=== PATIENT | male | born 1930 | race Hispanic/Latino ===

== ENCOUNTER 2018-02-28 10:56 | Observation (INO) | payer MEDICARE, OTHER ==
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
--- NOTE | 2018-02-28 11:49 | RAD ---
Date of service: 02/28/2018 HISTORY: r/o infiltrate COMPARISON: 07/10/2016. FINDINGS: LUNGS: The lungs are well inflated and clear. PLEURA: No significant pleural effusion identified, no pneumothorax apparent. CARDIOVASCULAR: Normal. OSSEOUS STRUCTURES: No significant abnormalities. VISUALIZED UPPER ABDOMEN: Normal. OTHER FINDINGS: None. IMPRESSION: No active pulmonary disease.
[2018-02-28 11:54] LABS: BASO # 0.02 K/mm3 (0.0-2.0); BASO % 0.2 % (0.0-3.0); EOS # 0.1 (0.0-0.7); EOS % 1.4 % (1.5-5.0); GRAN # 7.38 (1.4-6.5); GRAN % 74.8 % (50.0-68.0); HEMOGLOBIN 12.4 g/dL (14.0-18.0); LYMPH # 1.6 (1.2-3.4); LYMPH % 16.3 % (22.0-35.0); MEAN CELL VOLUME 86.6 fl (80.0-105.0); MEAN CORPUSCULAR HEMOGLOBIN 29.6 pg (25.0-35.0); MEAN CORPUSCULAR HGB CONC 34.2 g/dl (31.0-37.0); MEAN PLATELET VOLUME 9.5 fl (7.0-11.0); MONO # 0.7 (0.1-0.6); MONO % 7.3 % (1.0-6.0); RBC 4.19 10^6/uL (3.5-6.1); RED CELL DISTRIBUTION WIDTH 12.7 % (11.5-14.5); WHITE BLOOD COUNT 9.9 10^3/ul (4.5-11.0)
[2018-02-28 12:03] LABS: ALB/GLOB RATIO 1.4 (1.1-1.8); ALBUMIN 4.1 g/dL (3.0-4.8); ALT/SGPT 21 U/L (7-56); AST/SGOT 21 U/L (17-59); BLOOD UREA NITROGEN 19 mg/dL (7-21); CALCIUM 9.3 mg/dL (8.4-10.5); GFR AFRICAN-AMERICAN > 60; GFR NON-AFRICAN AMERICAN 57
[2018-02-28 12:14] LABS: TROPONIN I < 0.01 ng/mL
[2018-02-28 12:34] LABS: T3 1.03 ng/mL (0.97-1.69)
[2018-02-28] MEDS: Sodium Chloride 0.9% 1,000 ML IV SCH (12:39)
--- NOTE | 2018-02-28 12:39 | CT ---
Date of service: 02/28/2018 PROCEDURE: CT HEAD WITHOUT CONTRAST. HISTORY: s/p fall - r/o ICH COMPARISON: None available. TECHNIQUE: Axial computed tomography images were obtained through the head/brain without intravenous contrast. Radiation dose: Total exam DLP = 895 mGy-cm. This CT exam was performed using one or more of the following dose reduction techniques: Automated exposure control, adjustment of the mA and/or kV according to patient size, and/or use of iterative reconstruction technique. FINDINGS: HEMORRHAGE: No intracranial hemorrhage. BRAIN: No mass effect or edema. Severe chronic microvascular changes are seen in the periventricular white matter. No acute intracranial findings. There is a mild degree of atrophy VENTRICLES: Unremarkable. No hydrocephalus. CALVARIUM: Unremarkable. PARANASAL SINUSES: Unremarkable as visualized. No significant inflammatory changes. MASTOID AIR CELLS: Unremarkable as visualized. No inflammatory changes. OTHER FINDINGS: None. IMPRESSION: No acute intracranial findings
[2018-02-28 12:53] LABS: URINE BILIRUBIN NEGATIVE (NEGATIVE); URINE BLOOD NEGATIVE (NEGATIVE); URINE GLUCOSE (UA) >=1000 mg/dL (NEGATIVE); URINE LEUKOCYTE ESTERASE NEGATIVE Leu/uL (NEGATIVE); URINE PROTEIN TRACE mg/dL (<30 mg/dL); URINE UROBILINOGEN 0.2 E.U./dL (<1 E.U./dL)
[2018-02-28 12:55] LABS: URINE APPEARANCE CLEAR (CLEAR); URINE COLOR YELLOW (YELLOW)
[2018-02-28 13:03] LABS: URINE RBC 0 - 2 /hpf (0-2); URINE WBC 0 - 2 /hpf (0-6)
[2018-02-28 13:04] LABS: URINE BACTERIA FEW (NEG)
[2018-02-28 15:53] VITALS: BMI 25.5
[2018-02-28 16:46] VITALS: O2SAT 100
--- NOTE | 2018-02-28 21:00 | CARD ---
APPROVED REPORT Date of service: 02/28/2018 EKG Measurement Heart [id number] <Conclusion> Sinus rhythm with frequent PVCs Left axis deviation RSR' or QR pattern in V1 suggests right ventricular conduction delay Abnormal ECG
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
--- NOTE | 2018-03-01 01:34 | CON ---
Copied To: Jose Daniel Mott MD Attending MD: Jose Daniel Mott MD DATE: 02/28/2018 HISTORY OF PRESENT ILLNESS: This is an 87-year-old male with past medical history of diabetes, hyperlipidemia, came to the emergency room with episode of dizziness this morning. He states that he was making his bed, suddenly fell backward and hit the top of his head to the dresser and did not lose consciousness. and daughter are with the patient and CAT scan of the head was done, which was reported negative. Patient is going for ultrasound and workup in progress. PAST MEDICAL HISTORY: Diabetes, hypertension and dizziness. ALLERGIES: NO KNOWN DRUG ALLERGY. HOME MEDICATIONS: Zestril, glyburide and metformin. REVIEW OF SYSTEMS: Ten point review of systems was negative. PHYSICAL EXAMINATION: VITAL SIGNS: Blood pressure 166/86. HEENT: Normocephalic except bruise on the top of the head. NECK: Supple. NEUROLOGIC: Alert, awake and oriented x3. No aphasia. Cranial nerves II through XII were tested. Pupils reactive. EOM intact. Visual saucedo full. No facial asymmetry. Tongue midline. Motor: Moves all the extremities equally. Tone normal. Deep tendon reflexes are 1+. Both plantars are downgoing. Sensory appears intact. Cerebellar, gait, able to ambulate but reluctant. LABORATORY DATA: WBC 9.9, hemoglobin 12.4, hematocrit of 36.3, platelet 231. Sodium 133, potassium 5.1,chloride 96, CO2 of 26, glucose 257, BUN 19, creatinine 1.2. PLAN: Continue the present management. We will follow up. Jose Daniel Mott MD
[2018-03-01 06:29] LABS: ALB/GLOB RATIO 1.3 (1.1-1.8); ALBUMIN 4.6 g/dL (3.0-4.8); ALT/SGPT 22 U/L (7-56); AST/SGOT 25 U/L (17-59); BLOOD UREA NITROGEN 21 mg/dL (7-21); CALCIUM 9.4 mg/dL (8.4-10.5); GFR AFRICAN-AMERICAN > 60; GFR NON-AFRICAN AMERICAN 57; HDL CHOLESTEROL 37 mg/dL (29-60)
[2018-03-01 06:39] LABS: TROPONIN I < 0.01 ng/mL
[2018-03-01 06:40] LABS: LDL CHOLESTEROL 112 mg/dL (0-129)
[2018-03-01 07:34] VITALS: RESP 20
[2018-03-01] MEDS: Sodium Chloride 0.9% 1,000 ML IV SCH (11:03)
[2018-03-01 15:54] VITALS: BP 140/80; PULSE 82; TEMP 97.7
--- NOTE | 2018-03-01 16:42 | US ---
PROCEDURE: Bilateral carotid artery duplex ultrasound HISTORY: Carotid stenosis PHYSICIAN(S): Keith Dixon MD. TECHNIQUE: Duplex sonography and color-flow Doppler were used to evaluate the carotid bifurcations and limited segments of the vertebral arteries bilaterally. The exam is somewhat limited by tortuous vessels. FINDINGS: There is mild smooth heterogeneous plaque noted at the carotid bifurcations bilaterally. The peak systolic velocity in the proximal right internal carotid artery is 69 cm/sec. This corresponds to a 20 to 39% proximal right ICA stenosis. Normal systolic velocities are noted in the proximal right external carotid artery. There is antegrade flow in the right vertebral artery. The peak systolic velocity in the proximal left internal carotid artery is 85 cm/sec. This corresponds to a 20 to 39% proximal left ICA stenosis. Normal systolic velocities are noted in the proximal left external carotid artery. There is antegrade flow in the left vertebral artery. IMPRESSION: 1. 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 2. Antegrade flow in both vertebral arteries.
--- NOTE | 2018-03-01 17:41 | CARD ---
APPROVED REPORT Date of service: 03/01/2018 EXAM: Two-dimensional and M-mode echocardiogram with Doppler and color Doppler. INDICATION Syncope 2D DIMENSIONS Left Atrium (2D)3.9 (1.6-4.0cm)IVSd1.2 (0.7-1.1cm) LVDd4.7 (3.9-5.9cm)PWd1.2 (0.7-1.1cm) LVDs3.8 (2.5-4.0cm)FS (%) 19.2 % LVEF (%)39.4 (>50%) M-Mode DIMENSIONS Aortic Root3.00 (2.2-3.7cm)Aortic Cusp Exc.1.50 (1.5-2.0cm) Aortic Valve AoV Peak Gocozlag584.0cm/Chanelle Peak GR.7mmHg Mitral Valve E/A ratio0.0 TDI E/Lateral E'0.0E/Medial E'0.0 Tricuspid Valve TR Peak [id number]/sRAP [id number] Peak Gr.6mmHg [id number] LEFT VENTRICLE The left ventricle is normal size. There is mild concentric left ventricular hypertrophy. The systolic function is mildly to moderately impaired.EF-40-45% There is mild to moderate hypokinesis in the apical anterior wall. Transmitral Doppler flow pattern is Grade III-reversible restrictive diastolic dysfunction. No left ventricle thrombus noted on this study. There is no ventricular septal defect visualized. There is no left ventricular aneurysm. There is no mass noted in the left ventricle. RIGHT VENTRICLE The right ventricle is normal size. There is normal right ventricular wall thickness. The right ventricular systolic function is normal. ATRIA The left atrium size is normal. The right atrium size is normal. The interatrial septum is intact with no evidence for an atrial septal defect. AORTIC VALVE The aortic valve is calcified and displays decreased opening. The aortic valve is moderately sclerotic. There is trace aortic regurgitation. Mils Vs aortic sclerosis There is no aortic valvular vegetation. MITRAL VALVE The mitral valve is thickened but opens well. Mitral regurgitation is trace. There is no mitral valve stenosis. There is no evidence of mitral valve prolapse. TRICUSPID VALVE The tricuspid valve leaflets are thickened , but open well. There is trace tricuspid regurgitation.RVSP-16 mmof hg. There is no tricuspid valve stenosis. There is no tricuspid valve prolapse or vegetation. PULMONIC VALVE The pulmonary valve is normal in structure. There is no pulmonic valvular regurgitation. There is no pulmonic valvular stenosis. GREAT VESSELS The aortic root is normal in size. The ascending aorta is normal in size. The pulmonary artery is normal. The IVC is normal in size and collapses >50% with inspiration. PERICARDIAL EFFUSION There is no pleural effusion. There is no pericardial effusion. <Conclusion> The left ventricle is normal size. There is mild concentric left ventricular hypertrophy. The systolic function is mildly to moderately impaired.EF-40-45% There is trace aortic regurgitation. Mils Vs aortic sclerosis Mitral regurgitation is trace. There is trace tricuspid regurgitation.RVSP-16 mmof hg. The IVC is normal in size and collapses >50% with inspiration. There is no pericardial effusion.
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
--- NOTE | 2018-03-02 07:21 | DS ---
Copied To: Jose Antonio Haro MD Attending MD: Jose Antonio Haro MD HOSPITAL COURSE: The patient is 87-year-old, seen and examined, walking around with his daughter. He states he does not feel weak or dizzy anymore. He is almost back to the baseline. He states yesterday after he made bed, when he bent down and got up, he felt extremely dizzy and fell. Denies any back pain or knee pain. He states that he usually feels dizzy, but yesterday was extraordinary. Feels okay now. PHYSICAL EXAMINATION: VITAL SIGNS: He is afebrile, pulse 78, respirations 20, blood pressure 175/93. LUNGS: Bilateral good airflow. No rhonchi or crackle. HEART: S1 and S2 audible. ABDOMEN: Soft, nontender. No rebound, no guarding. NEUROLOGIC: He is awake, alert, oriented, communicative, ambulatory. EXTREMITIES: Bilateral legs, no edema. LABORATORY DATA: Sodium 142, potassium 4.4, chloride 101, CO2 26, BUN 21, creatinine 1.2, blood sugar of 159. ASSESSMENT: 1. Status post near syncope. 2. Uncontrolled hypertension. 3. Xcf-aabokzm-rjfozvgsk diabetes. 4. Hyperlipidemia. 5. Degenerative disk disease. PLAN: Start him on amlodipine 10 mg daily. Discontinue his IV fluids. Continue on lisinopril. We will monitor his blood pressure. I spoke to his daughter who need to have close monitoring of his blood pressure and might need to readjust his medication. Currently, he is only on lisinopril at home and he takes his diabetes medication, that is, Janumet. So, once his blood pressure is stable and cleared from Neuro and Cardiology point of view, he will be discharged. Jose Antonio Haro MD
== END 2018-03-01 16:52 | disposition home or self-care (01) ==
LOC: ED 10:56 → ERH 13:23 → 3RNO 14:16
PROVIDERS: ADMIT Internal Medicine; ATTEND Internal Medicine
DX: R55 Syncope and collapse (principal); R42 Dizziness and giddiness; I10 Essential (primary) hypertension; E11.9 Type 2 diabetes mellitus without complications; E78.5 Hyperlipidemia, unspecified; M54.9 Dorsalgia, unspecified; G89.29 Other chronic pain; Z91.81 History of falling; Z79.84 Long term (current) use of oral hypoglycemic drugs
CPT/HCPCS: 36415; 70450; 71045; 80053; 80061; 81001; 82550; 82948; 83036; 83615; 83735; 84443; 84480; 84484; 85025; 87086; 93005; 93306; 93880; 97116; 97162; 99285; G0378; G8978; G8979; J7030